=== PATIENT | male | born 1980 | race African-American/Black ===

== ENCOUNTER 2018-09-16 00:28 | Emergency (ER) | payer OTHER ==
[~2018-09-16] VITALS: Ht 182.9 cm; Wt 93.0 kg
--- NOTE | 2018-09-16 00:31 | ED.ADGEN ---
Adult General Chief Complaint Chief Complaint "... This back tooth is killing me... I need to see a dentist... " HPI HPI Patient is a 38 year old male who presents with above hx and complaints of dental pain. Pt. Localizes pain in tooth 17, but has multiple areas of decay. Pt. denies hx of immunosuppression. Denies fever or chills. Patient has no trismus. Patient has no pointing abscesses. Review of Systems Review of Systems Constitutional: Denies fever or chills [] Eyes: Denies change in visual acuity, redness, or eye pain [ HENT: Denies nasal congestion or sore throat -[]complaints of dental pain Respiratory: Denies cough or shortness of breath [] Cardiovascular: No additional information not addressed in HPI [] GI: Denies abdominal pain, nausea, vomiting, bloody stools or diarrhea [] : Denies dysuria or hematuria [] Musculoskeletal: Denies back pain or joint pain [] Integument: Denies rash or skin lesions [] Neurologic: Denies headache, focal weakness or sensory changes [] Endocrine: Denies polyuria or polydipsia [] All other systems were reviewed and found to be within normal limits, except as documented in this note. Family History Family History Noncontributory Current Medications Current Medications Current Medications Medications (Trade) Dose Ordered Sig/Zaki Start Time Stop Time Status Last Admin Dose Admin Cephalexin HCl (Keflex) 500 mg 1X ONCE 09/16/18 01:00 09/16/18 01:00 DC 09/16/18 00:52 500 MG Ketorolac Tromethamine (Toradol Im) 60 mg 1X ONCE 09/16/18 01:00 09/16/18 01:00 DC 09/16/18 00:53 60 MG Oxycodone/ Acetaminophen (Percocet 5/325) 2 tab 1X ONCE 09/16/18 01:00 09/16/18 01:00 DC 09/16/18 00:52 2 TAB Allergies Allergies Allergies Coded Allergies Type Severity Reaction Last Updated Verified No Known Drug Allergies 09/16/18 No Physical Exam Physical Exam Constitutional: in acute distress, non-toxic appearance. [] HENT: Normocephalic, atraumatic, bilateral external ears normal, oropharynx moist, no oral exudates, nose normal. []Multiple dental caries and gingivitis. No trismus. Localizes pain in area of tooth 17 Eyes: PERRLA, EOMI, conjunctiva normal, no discharge. [] Neck: Normal range of motion, no tenderness, supple, no stridor. [] Cardiovascular:Heart rate regular rhythm, no murmur [] Lungs & Thorax: Bilateral breath sounds equal at apexes scattered wheezes on auscultation [] Abdomen: Bowel sounds normal, soft, no tenderness, no masses, no pulsatile masses. [] Skin: Warm, dry, no erythema, no rash. [] Back: No tenderness, no CVA tenderness. [] Extremities: No tenderness, no cyanosis, no clubbing, ROM intact, no edema. [] Neurologic: Alert and oriented X 3, normal motor function, normal sensory function, no focal deficits noted. [] Psychologic: Affect anxious, judgement normal, mood normal. [] Current Patient Data Vital Signs Vital Signs Date Time Temp Pulse Resp B/P (MAP) Pulse Ox O2 Delivery O2 Flow Rate FiO2 09/16/18 00:52 20 97 09/16/18 00:46 98.3 76 Room Air EKG EKG [] Radiology/Procedures Radiology/Procedures [] Course & Med Decision Making Course & Med Decision Making Pertinent Labs and Imaging studies reviewed. (See chart for details). Take Keflex 500 mg 3 times a day x 10 days.. Tylenol and ibuprofen for pain. Vicoprofen up to 4 times a day for marked pain. Must See a dentist. Follow-up primary care. Further narcotics must be filled by primary or dentist. Must see a dentist. [] Final Impression Final Impression 1. Dental pain[] Dragon Disclaimer Dragon Disclaimer This electronic medical record was generated, in whole or in part, using a voice recognition dictation system. SAWYER FERGUSON MD Sep 16, 2018 00:31
[2018-09-16 00:46] VITALS: BP 162/108
[2018-09-16] MEDS ORDERED: HYDR-79 PO (00:49)
[2018-09-16] MEDS ORDERED: CEPH-264 PO (00:49)
[2018-09-16] MEDS ORDERED: KETOROLAC 60 MG/2 ML VIAL. IM ONE (01:00)
[2018-09-16] MEDS ORDERED: oxyCODONE/APAP 5/325 1 TAB TABLET PO ONE (01:00)
[2018-09-16] MEDS ORDERED: CEPHALEXIN 250 MG CAPSULE PO ONE (01:00)
== END 2018-09-16 00:59 | disposition home or self-care (01) ==
LOC: ER 00:28
DX: K08.89 Other specified disorders of teeth and supporting structures (principal); K02.9 Dental caries, unspecified; K05.10 Chronic gingivitis, plaque induced
CPT/HCPCS: 96372; 99283; J1885

== ENCOUNTER → 2021-08-09 | Emergency (ER) | payer MEDICAID, OTHER ==
[~2021-08-09] VITALS: Ht 182.9 cm; Wt 100.9 kg
[~2021-08-09] MED LIST: AMOX1TAB61 PO; CEPH-264 PO; HYDR-1179 PO; TRAM50TA PO; traMADol 50 MG TABLET PO ONE
[2021-08-09 13:43] VITALS: BP 145/102
--- NOTE | 2021-08-09 13:55 | PHYS DOC ---
Past History Past Medical History: Other (PIYUSH BYRNE) Past Surgical History: No Surgical History (PIYUSH BYRNE) Alcohol Use: Occasionally Drug Use: Marijuana (PIYUSH BYRNE) General Adult EDM: Chief Complaint: DENTAL PROBLEM Problems: (1) Pain, dental (PIYUSH BYRNE) HPI: HPI: Patient is a 41 year old male who presents with 4-day history of right-sided dental pain. Patient states he has "bad teeth" and gets this sort of pain frequently. He reports associated upper lip swelling. He states that his increased from his normal pain that he gets frequently. He last visited a dentist 3 years ago. He denies fever, chills, vision changes, orbital pain. Patient has no other complaints at this time. (PIYUSH BYRNE) Review of Systems: Review of Systems: Constitutional: See HPI Eyes: See HPI HENT: Denies nasal congestion or sore throat Respiratory: Denies cough or shortness of breath Cardiovascular: Denies chest pain or edema Integument: Denies rash (PIYUSH BYRNE) Allergies: Allergies: Allergies Coded Allergies Type Severity Reaction Last Updated Verified No Known Drug Allergies 09/16/18 No (PIYUSH BYRNE) Physical Exam: PE: Constitutional: Patient appears to be in pain, cradling the right side of his face. Well developed, well nourished, non-toxic appearance. HENT: Normocephalic, atraumatic, bilateral external ears normal, oropharynx moist, notably poor dentition with multiple missing teeth, purulent abscess opening noted behind upper gumline, nose normal. Eyes: PERRLA, EOMI, conjunctiva normal, no discharge. Neck: Normal range of motion, no tenderness, supple, no stridor. Cardiovascular:Heart rate regular rhythm, no murmur. Lungs & Thorax: Bilateral breath sounds clear to auscultation. Skin: Warm, dry, no erythema, no rash. (PIYUSH BYRNE) Current Patient Data: Vital Signs: Vital Signs Date Time Temp Pulse Resp B/P (MAP) Pulse Ox O2 Delivery O2 Flow Rate FiO2 08/09/21 13:43 98.5 99 16 145/102 (116) 99 Room Air (PIYUSH BYRNE) Heart Score: C/O Chest Pain: No (PIYUSH BYRNE) Course & Med Decision Making: Course & Med Decision Making Pertinent Labs and Imaging studies reviewed. (See chart for details) Limits of dental pain treatment in the emergency department were discussed with the patient. He is aware that he needs to visit a dentist. He will be provided with tramadol in the department, as well as a prescription for the next few days at home. This will hopefully control his pain until he is able to get an appointment with a dentist. He will be provided with 7 days of Augmentin. Patient did not leave pharmacy information prior to departure. Patient was contacted and pharmacy information was obtained. He is aware he has prescriptions waiting. (PIYUSH BYRNE) Dragon Disclaimer: Dragon Disclaimer: This electronic medical record was generated, in whole or in part, using a voice recognition dictation system. (PIYUSH BYRNE) Departure Departure: Impression: Primary Impression: Dental abscess Disposition: HOME / SELF CARE / HOMELESS Condition: STABLE Referrals: PCP,JESSE (PCP) Patient Instructions: Dental Abscess Additional Instructions: Please call your dentist as soon as possible to schedule follow-up appointment. Let them know you were seen in the emergency department, and they should be able to schedule you in the next few days. Return to the department if your symptoms worsen or if you develop a fever. Scripts Tramadol Hcl (TRAMADOL HCL) 50 Mg Tablet 50 MG PO PRN Q6HRS PRN for PAIN for 5 Days, #20 TAB Take 1 tablet by mouth every 6 hours as needed for pain. Prov: PIYUSH BYRNE 08/09/21 Amoxicillin/Potassium Clav (AUGMENTIN 875-125 TABLET) 1 Each Tablet 1 TAB PO BID for dental abscess for 10 Days, #20 TAB 0 Refills Take 1 tablet by mouth twice a day for 10 days. Please finish full course of antibiotics, unless otherwise instructed by your dentist. Prov: PIYUSH BYRNE 08/09/21 Attending Signature Attending Signature I have reviewed the PA/POTATO PICKER's note and plan of care. I was available for consultation as needed during the patient's visit in the emergency department. I agree with the clinical impression, plan, and disposition. (JAVIER FINNEGAN DO) PIYUSH BYRNE Aug 09, 2021 13:55 JAVIER FINNEGAN DO Aug 09, 2021 16:07
== END | disposition home or self-care (01) ==
LOC: ER 13:28
DX: K04.7 Periapical abscess without sinus (principal)
CPT/HCPCS: 99283